=== PATIENT | male | born 1960 | race African-American/Black ===

== ENCOUNTER 2018-12-24 05:18 | Day surgery (SDC) | payer MEDICAID ==
[~2018-12-24] VITALS: Ht 182.9 cm; Wt 90.7 kg
[~2018-12-24 05:18] MED LIST: GABA-529 PO; LACTATED RINGERS 1,000 ML IV SCH; OMEP10CA4 PO; TAMS-11 PO
[2018-12-24] MEDS ORDERED: LIDOCAINE HCL 1% 20ML VIAL (Pyxis) INJ ONE ×2 (06:30→07:51)
[2018-12-24] MEDS ORDERED: BUPIVACAINE HCL/PF 0.5% (5MG/ML) 10ML ONE (06:31)
[2018-12-24] MEDS ORDERED: BACITRACIN 50,000 UNITS/VIAL ONE (06:31)
[2018-12-24] MEDS ORDERED: SKIN ADHESIVE 0.7 GM EA TOP ONE (06:31)
[2018-12-24] MEDS ORDERED: NORMAL SALINE 0.9% 10 ML SYR ONE (06:31)
[2018-12-24] MEDS ORDERED: LACTATED RINGERS 1,000 ML IV SCH (07:00)
[2018-12-24] MEDS ORDERED: CEFOXITIN SODIUM 2 G in DEXT 5% WATER 100 ML IV ONE (07:30)
[2018-12-24] MEDS ORDERED: FENTANYL CITRATE/PF 50MCG/ML 2ML VIAL ONE ×2 (07:50→08:51)
[2018-12-24] MEDS ORDERED: PROPOFOL 200MG/20ML VIAL IV ONE (07:51)
[2018-12-24] MEDS ORDERED: MIDAZOLAM HCL 2 MG/2 ML VIAL ONE (07:51)
[2018-12-24] MEDS ORDERED: ROCURONIUM BROMIDE 10MG/ML VIAL 5ML IV ONE ×2 (07:51→08:51)
[2018-12-24] MEDS ORDERED: NEOSTIGMINE METHYLSULFATE 1MG/ML 10 ML VIAL ONE (09:05)
[2018-12-24] MEDS ORDERED: GLYCOPYRROLATE 0.2 MG/ML 2ML VIAL ONE (09:05)
[2018-12-24] MEDS ORDERED: ONDANSETRON HCL 4MG/2ML INJ ONE (09:06)
[2018-12-24] MEDS ORDERED: METOCLOPRAMIDE HCL 10MG/2ML VIAL ONE (09:06)
[2018-12-24] MEDS ORDERED: SODIUM CHLORIDE 0.9% 1,000 ML IV ONE (09:26)
[2018-12-24] MEDS ORDERED: HYDROMORPHONE HCL/PF 2MG/ML CPJ IV PRN (09:30)
[2018-12-24] MEDS ORDERED: MEPERIDINE HCL/PF 25MG/ML CPJ IV PRN ×2 (09:30)
[2018-12-24] MEDS ORDERED: ONDANSETRON HCL 4MG/2ML INJ IV PRN (09:30)
[2018-12-24] MEDS ORDERED: MORPHINE SULFATE 4 MG/ML CPJ (NOT FOR IM USE) IV PRN (09:30)
== END 2018-12-24 11:30 | disposition home or self-care (01) ==
LOC: OR 05:18
PROVIDERS: ATTEND Specialist
DX: K40.30 Unilateral inguinal hernia, with obstruction, without gangrene, not specified as recurrent (principal); Z87.891 Personal history of nicotine dependence; K21.9 Gastro-esophageal reflux disease without esophagitis
CPT/HCPCS: 49507; G0168; J0694; J2250; J2405; J2704; J2710; J2765; J3010; J3490; J7060; C1781

== ENCOUNTER 2023-12-11 21:16 | Emergency (ER) | payer MEDICAID ==
[~2023-12-11] VITALS: Ht 182.9 cm; Wt 91.0 kg
[~2023-12-11 21:16] MED LIST changes: -LACTATED RINGERS 1,000 ML IV SCH; -OMEP10CA4 PO; +OMEP10CA5 PO
[2023-12-11 21:24] VITALS: TEMP 98.4; O2SAT 96
[2023-12-12] MEDS ORDERED: AMOXICILLIN/POTASSIUM CLAVULANATE 875/125MG TAB PO ONE (01:00)
[2023-12-12] MEDS ORDERED: KETOROLAC 60MG/2ML VIAL IM ONE (01:00)
[2023-12-12] MEDS ORDERED: AMOX1TAB16 MT (01:01)
[2023-12-12] MEDS ORDERED: FLUT9.9S BOTHNSTRLS (01:01)
[2023-12-12] MEDS ORDERED: IBUP-2029 MT (01:01)
[2023-12-12 01:35] VITALS: BP 128/72; PULSE 90; RESP 18
== END 2023-12-12 01:46 | disposition home or self-care (01) ==
LOC: ER 21:16
DX: J32.9 Chronic sinusitis, unspecified (principal)
CPT/HCPCS: 99283; 96372; J1885; Z7610

== ENCOUNTER 2024-09-04 11:39 | Emergency (ER) | payer MEDICAID ==
[~2024-09-04] VITALS: Ht 182.9 cm; Wt 81.6 kg
[~2024-09-04 11:39] MED LIST changes: +AMOX1TAB16 MT; +FLUT9.9S BOTHNSTRLS; +IBUP-2029 MT
[2024-09-04 11:40] VITALS: O2SAT 100
[2024-09-04 11:46] VITALS: TEMP 98; O2SAT 97
[2024-09-04] MEDS ORDERED: AMOX1TAB16 MT (12:07)
[2024-09-04] MEDS ORDERED: IBUP-2030 MT (12:07)
[2024-09-04] MEDS ORDERED: SULF1TAB48 MT (12:07)
[2024-09-04 12:09] VITALS: BP 115/77; PULSE 77; RESP 16
[2024-09-04] MEDS: IBUPROFEN 600MG TABLET PO STA (12:09)
== END 2024-09-04 13:21 | disposition home or self-care (01) ==
LOC: ER 11:45
DX: K02.9 Dental caries, unspecified (principal)
CPT/HCPCS: 99283

== ENCOUNTER 2024-11-23 08:25 | Emergency (ER) | payer MEDICAID, OTHER ==
[~2024-11-23] VITALS: Ht 182.9 cm; Wt 90.7 kg
[~2024-11-23 08:25] MED LIST changes: +IBUP-2030 MT; +SULF1TAB48 MT
[2024-11-23 09:32] VITALS: BP 118/58; PULSE 78; RESP 16; TEMP 98.2; O2SAT 100
[2024-11-23] MEDS ORDERED: PERM60CR4 TP (10:42)
== END 2024-11-23 10:56 | disposition home or self-care (01) ==
LOC: ER 08:36
DX: B86 Scabies (principal); F19.90 Other psychoactive substance use, unspecified, uncomplicated; Z90.49 Acquired absence of other specified parts of digestive tract; Z79.899 Other long term (current) drug therapy
CPT/HCPCS: 99282

== ENCOUNTER 2025-01-29 05:19 | Emergency (ER) | payer MEDICAID, OTHER ==
[~2025-01-29] VITALS: Ht 175.3 cm; Wt 82.8 kg
[~2025-01-29 05:19] MED LIST changes: +PERM60CR4 TP
[2025-01-29 05:48] VITALS: TEMP 36.6; O2SAT 98
[2025-01-29 06:16] LABS: CHLORIDE 105 mEq/L (98-107); POTASSIUM 4.4 mEq/L (3.5-5.1); SODIUM 138 mEq/L (136-145)
[2025-01-29 06:17] LABS: BASOPHILS % 0.9 % (0.0-2.0); CALCIUM 9.3 mg/dL (8.7-10.4); CARBON DIOXIDE 25 mEq/L (21-32); EOSINOPHILS % 2.6 % (0.0-5.0); HEMATOCRIT. 42.8 % (42.0-52.0); HEMOGLOBIN. 14.3 g/dL (14.0-18.0); LYMPHOCYTES % 22.5 % (20.0-50.0); MEAN CORPUSCULAR HEMOGLOBIN 31.2 pg (28.0-32.0); MEAN CORPUSCULAR HGB CONC 33.4 g/dL (31.0-37.0); MEAN CORPUSCULAR VOLUME 93.3 fL (80.0-94.0); MEAN PLATELET VOLUME 7.5 fl (7.4-10.4); MONOCYTES % 11.4 % (2.0-8.0); NEUTROPHILS % 62.6 % (40.0-76.0); PLATELET 341 x1000/uL (130-400); RED BLOOD CELL COUNT 4.59 mill/uL (4.7-6.1); RED CELL DISTRIBUTION WIDTH 13.3 % (11.6-14.6); WHITE BLOOD COUNT 11.5 x1000/uL (4.5-11.0)
[2025-01-29 06:22] LABS: CREATININE 1.1 mg/dL (0.6-1.3); GLUCOSE 120 mg/dL (70-105); UREA NITROGEN BLOOD 13 mg/dL (9-23)
[2025-01-29] MEDS ORDERED: KETOROLAC 30MG/ML VIAL IM ONE (07:45)
[2025-01-29] MEDS ORDERED: SULF1TAB48 MT (09:27)
[2025-01-29] MEDS ORDERED: PERM60CR4 TP (09:27)
[2025-01-29] MEDS: SULFAMETHOXAZOLE/TRIMETHOPRIM 800/160MG TABLET PO ONE (09:30)
[2025-01-29 09:58] VITALS: BP 128/86; PULSE 92; RESP 20
[2025-01-29] MEDS: KETOROLAC 30MG/ML VIAL IM NR (09:58)
== END 2025-01-29 09:59 | disposition home or self-care (01) ==
LOC: ER 05:27
DX: S81.801A Unspecified open wound, right lower leg, initial encounter (principal); Z79.899 Other long term (current) drug therapy; Z87.891 Personal history of nicotine dependence; Z90.49 Acquired absence of other specified parts of digestive tract; X58.XXXA Exposure to other specified factors, initial encounter; Y93.89 Activity, other specified; Y92.89 Other specified places as the place of occurrence of the external cause; Y99.8 Other external cause status
CPT/HCPCS: 99284; 80048; 85025; 85651; 36415; 73552; 73590; 96372; J1885